=== PATIENT | female | born 1995 | race Caucasian/White ===

== ENCOUNTER 2016-12-28 10:33 | Inpatient (IN) | payer OTHER ==
--- NOTE | 2016-12-28 11:14 | ED ---
General Adult HPI - General Chief complaint: Psychiatric Symptoms Stated complaint: Overdose Time Seen by Provider: 12/28/16 10:54 Source: patient, RN notes reviewed Mode of arrival: EMS Limitations: no limitations - History of Present Illness Initial comments: Patient is a 21-year-old female who presents emergency room with chief complaint of suicidal intent. Patient does admit to taking tramadol and Valium or Xanax. She states tramadol was prescribed herself or kidney stone proximal ago. States the Valium or Xanax was her mother's. She states she took 8 pills and tramadol and 1 tab of either Valium or Xanax. She states she did have intentions of hurting herself. States she does not see a therapist or counselor. Patient does admit to feeling very sleepy at this time but denies any other complaints. Patient denies any recent fever, chills, shortness of breath, chest pain, back pain, abdominal pain, nausea or vomiting, numbness or tingling, dysuria or hematuria, constipation or diarrhea, headaches or visual changes, or any other complaints. - Related Data Home Medications Medication Instructions Recorded Confirmed Ibuprofen [Motrin] 400 mg PO Q6HR PRN 12/28/16 12/28/16 [place]-Linyah 1 tab PO DAILY 12/28/16 12/28/16 Allergies Allergy/AdvReac Type Severity Reaction Status Date / Time No Known Allergies Allergy Verified 12/28/16 11:45 Review of Systems ROS Statement: Those systems with pertinent positive or pertinent negative responses have been documented in the HPI. ROS Other: All systems not noted in ROS Statement are negative. Past Medical History Additional Past Medical History / Comment(s): kidney stones History of Any Multi-Drug Resistant Organisms: None Reported Additional Past Surgical History / Comment(s): lithotripsy Past Psychological History: Depression Smoking Status: Never smoker Past Alcohol Use History: None Reported Past Drug Use History: None Reported General Exam - General Exam Comments Initial Comments: General: The patient is awake and alert, in no distress, and does not appear acutely ill. Eye: Pupils are equal, round and reactive to light, extra-ocular movements are intact. No nystagmus. There is normal conjunctiva bilaterally. No signs of icterus. Ears, nose, mouth and throat: There are moist mucous membranes and no oral lesions. Neck: The neck is supple, there is no tenderness or JVD. Cardiovascular: There is a regular rate and rhythm. No murmur, rub or gallop is appreciated. Respiratory: Lungs are clear to auscultation, respirations are non-labored, breath sounds are equal. No wheezes, stridor, rales, or rhonchi. Gastrointestinal: Soft, non-distended, non-tender abdomen without masses or organomegaly noted. There is no rebound or guarding present. No CVA tenderness. Bowel sounds are unremarkable. Musculoskeletal: Normal ROM, no tenderness. Strength 5/5. Sensation intact. Pulses equal bilaterally 2+. Neurological: A&O x 3. CN II-XII intact, There are no obvious motor or sensory deficits. Coordination appears grossly intact. Speech is normal. Skin: Skin is warm and dry and no rashes or lesions are noted. Psychiatric: Cooperative. Limitations: no limitations Course Vital Signs 12/28/16 10:59 Temperature 97.1 F L Pulse Rate 126 H Respiratory 18 Rate Blood Pressure 164/90 O2 Sat by Pulse 100 Oximetry - Reevaluation(s) Reevaluation #1: 12/28/16 13:18 Patient reexamined at this time and showing no signs of distress resting comfortable. States she is feeling better after IV fluids. Heart rate currently 110 bpm. Patient's EKG shows sinus tachycardia 110 bpm. MT interval 146. QRS 88. QT/QTC 352/476. Case was discussed with poison control. Nursing staff did talk with them and they recommended basic lab work along with fluid bolus. They stated they were worried about bradycardia. Patient has been seen by [facility] here in the emergency room and they are recommending admission to the hospital. 12/28/16 13:49 Case discussed in detail with attending physician Dr. Li .Patient is seen here in the health recommendation. Patient continues give IV fluids. Patient urinalysis reveals possible urinary tract infection. She does admit to some symptoms of increased frequency and a smell. Patient given dose Rocephin here in the emergency room. Medical Decision Making - Lab Data Result diagrams: 12/28/16 10:49 12/28/16 10:49 Lab Results 12/28/16 12/28/16 12/28/16 Range/Units 10:49 10:49 10:49 WBC 10.1 (3.8-10.6) k/uL RBC 4.60 (3.80-5.40) m/uL Hgb 13.5 (11.4-16.0) gm/dL Hct 39.5 (34.0-46.0) % MCV 85.9 (80.0-100.0) fL MCH 29.3 (25.0-35.0) pg MCHC 34.0 (31.0-37.0) g/dL RDW 12.3 (11.5-15.5) % Plt Count 299 (150-450) k/uL Neutrophils % 72 % Lymphocytes % 23 % Monocytes % 3 % Eosinophils % 1 % Basophils % 0 % Neutrophils # 7.2 (1.3-7.7) k/uL Lymphocytes # 2.3 (1.0-4.8) k/uL Monocytes # 0.3 (0-1.0) k/uL Eosinophils # 0.1 (0-0.7) k/uL Basophils # 0.0 (0-0.2) k/uL Sodium 138 (137-145) mmol/L Potassium 3.6 (3.5-5.1) mmol/L Chloride 102 (98-107) mmol/L Carbon Dioxide 19 L (22-30) mmol/L Anion Gap 17 mmol/L BUN 11 (7-17) mg/dL Creatinine 0.50 L (0.52-1.04) mg/dL Est GFR (MDRD) Af Amer >60 (>60 ml/min/1.73 sqM) Est GFR (MDRD) Non-Af >60 (>60 ml/min/1.73 sqM) Glucose 119 H (74-99) mg/dL Calcium 9.4 (8.4-10.2) mg/dL Total Bilirubin 0.3 (0.2-1.3) mg/dL AST 28 (14-36) U/L ALT 53 H (9-52) U/L Alkaline Phosphatase 75 (38-126) U/L Total Protein 7.9 (6.3-8.2) g/dL Albumin 4.6 (3.5-5.0) g/dL Urine Color Urine Appearance (Clear) Urine pH (5.0-8.0) Ur Specific [place] (1.001-1.035) Urine Protein (Negative) Urine Glucose (UA) (Negative) Urine Ketones (Negative) Urine Blood (Negative) Urine Nitrite (Negative) Urine Bilirubin (Negative) Urine Urobilinogen (<2.0) mg/dL Ur Leukocyte Esterase (Negative) Urine RBC (0-5) /hpf Urine WBC (0-5) /hpf Ur Squamous Epith Cells (0-4) /hpf Urine Bacteria (None) /hpf Urine Mucus (None) /hpf Urine HCG, Qual (Not Detectd) Salicylates <1.0 mg/dL Urine Opiates Screen (NotDetected) Ur Oxycodone Screen (NotDetected) Urine Methadone Screen (NotDetected) Ur Propoxyphene Screen (NotDetected) Acetaminophen <10.0 ug/mL Ur Barbiturates Screen (NotDetected) U Tricyclic Antidepress (NotDetected) Ur Phencyclidine Scrn (NotDetected) Ur Amphetamines Screen (NotDetected) U Methamphetamines Scrn (NotDetected) U Benzodiazepines Scrn (NotDetected) Urine Cocaine Screen (NotDetected) U Marijuana (THC) Screen (NotDetected) 12/28/16 12/28/16 Range/Units 11:30 11:30 WBC (3.8-10.6) k/uL RBC (3.80-5.40) m/uL Hgb (11.4-16.0) gm/dL Hct (34.0-46.0) % MCV (80.0-100.0) fL MCH (25.0-35.0) pg MCHC (31.0-37.0) g/dL RDW (11.5-15.5) % Plt Count (150-450) k/uL Neutrophils % % Lymphocytes % % Monocytes % % Eosinophils % % Basophils % % Neutrophils # (1.3-7.7) k/uL Lymphocytes # (1.0-4.8) k/uL Monocytes # (0-1.0) k/uL Eosinophils # (0-0.7) k/uL Basophils # (0-0.2) k/uL Sodium (137-145) mmol/L Potassium (3.5-5.1) mmol/L Chloride (98-107) mmol/L Carbon Dioxide (22-30) mmol/L Anion Gap mmol/L BUN (7-17) mg/dL Creatinine (0.52-1.04) mg/dL Est GFR (MDRD) Af Amer (>60 ml/min/1.73 sqM) Est GFR (MDRD) Non-Af (>60 ml/min/1.73 sqM) Glucose (74-99) mg/dL Calcium (8.4-10.2) mg/dL Total Bilirubin (0.2-1.3) mg/dL AST (14-36) U/L ALT (9-52) U/L Alkaline Phosphatase (38-126) U/L Total Protein (6.3-8.2) g/dL Albumin (3.5-5.0) g/dL Urine Color Yellow Urine Appearance Turbid H (Clear) Urine pH 6.0 (5.0-8.0) Ur Specific [place] 1.021 (1.001-1.035) Urine Protein 1+ H (Negative) Urine Glucose (UA) Negative (Negative) Urine Ketones 1+ H (Negative) Urine Blood Small H (Negative) Urine Nitrite Negative (Negative) Urine Bilirubin Negative (Negative) Urine Urobilinogen <2.0 (<2.0) mg/dL Ur Leukocyte Esterase Large H (Negative) Urine RBC 10 H (0-5) /hpf Urine WBC 25 H (0-5) /hpf Ur Squamous Epith Cells 21 H (0-4) /hpf Urine Bacteria Moderate H (None) /hpf Urine Mucus Occasional H (None) /hpf Urine HCG, Qual Not Detected (Not Detectd) Salicylates mg/dL Urine Opiates Screen Not Detected (NotDetected) Ur Oxycodone Screen Not Detected (NotDetected) Urine Methadone Screen Not Detected (NotDetected) Ur Propoxyphene Screen Not Detected (NotDetected) Acetaminophen ug/mL Ur Barbiturates Screen Not Detected (NotDetected) U Tricyclic Antidepress Not Detected (NotDetected) Ur Phencyclidine Scrn Not Detected (NotDetected) Ur Amphetamines Screen Not Detected (NotDetected) U Methamphetamines Scrn Not Detected (NotDetected) U Benzodiazepines Scrn Not Detected (NotDetected) Urine Cocaine Screen Not Detected (NotDetected) U Marijuana (THC) Screen Not Detected (NotDetected) Disposition Clinical Impression: Attempted suicide Disposition: TRANSFER TO PSYCH HOSP/UNIT Condition: Stable Referrals: Melchor Diaz MD [Primary Care Provider] - 1-2 days
[2016-12-28 11:20] LABS: Basophils % (A) 0 %; CH 29.2; CHCM 34.1; Eosinophils # (A) 0.1 k/uL (0-0.7); Eosinophils % (A) 1 %; HCT 39.5 % (34.0-46.0); HDW 2.41; HGB 13.5 gm/dL (11.4-16.0); Luc # (Auto) 0.21; Luc % (Auto) 2; Lymphocytes # (A) 2.3 k/uL (1.0-4.8); Lymphocytes % (A) 23 %; MCH 29.3 pg (25.0-35.0); MCV 85.9 fL (80.0-100.0); Mean Platelet Volume 6.7; Monocytes # (A) 0.3 k/uL (0-1.0); Monocytes % (A) 3 %; Neutrophils # (A) 7.2 k/uL (1.3-7.7); Neutrophils % (A) 72 %; RDW 12.3 % (11.5-15.5); WBC 10.1 k/uL (3.8-10.6); WBC (Perox) 9.88
[2016-12-28 11:32] LABS: Acetaminophen <10.0 ug/mL; Salicylate <1.0 mg/dL
[2016-12-28 11:33] LABS: ALT 53 U/L (9-52); AST 28 U/L (14-36); Alkaline Phosphatase 75 U/L (38-126); Anion Gap 17 mmol/L; Blood Urea Nitrogen 11 mg/dL (7-17); Calcium 9.4 mg/dL (8.4-10.2); Carbon Dioxide 19 mmol/L (22-30); Chloride 102 mmol/L (98-107); Glucose 119 mg/dL (74-99); Non-African American GFR(MDRD) >60 (>60 ml/min/1.73 sqM); Potassium 3.6 mmol/L (3.5-5.1); Sodium 138 mmol/L (137-145); Total Bilirubin 0.3 mg/dL (0.2-1.3); Total Protein 7.9 g/dL (6.3-8.2)
[2016-12-28] MEDS ORDERED: SODIUM CHLORIDE 0.9% 1,000 ML IV STA ×3 (12:08→12:28)
[2016-12-28 12:40] LABS: Appearance,Urine Turbid (Clear); Bacteria,Urine Moderate /hpf; Bilirubin,Urine Negative (Negative); Glucose,Urine (UA) Negative (Negative); Ketones,Urine 1+ (Negative); Leukocyte Esterase,Urine Large (Negative); Mucus,Urine Occasional /hpf; Nitrite,Urine Negative (Negative); Particle Count 47387; Protein,Urine 1+ (Negative); RBC,Urine 10 /hpf (0-5); Specific Gravity,Urine 1.021 (1.001-1.035); Squamous Epithelial Cell,Urine 21 /hpf (0-4); UA Billing (MACRO vs. MICRO) MICRO; Urobilinogen,Urine <2.0 mg/dL (<2.0); WBC,Urine 25 /hpf (0-5)
[2016-12-28] MEDS ORDERED: ACETAMINOPHEN TAB 325 MG TAB PO PRN (15:46)
[2016-12-28] MEDS ORDERED: LORazepam 0.5 MG TAB PO PRN (15:46)
[2016-12-28] MEDS ORDERED: MAGNESIUM HYDROXIDE 2,400 MG/10 ML CUP PO PRN (15:46)
[2016-12-28] MEDS ORDERED: MAG HYDROX/AL HYDROX/SIMETH 30 ML CUP PO PRN (15:46)
[2016-12-28] MEDS ORDERED: IBUPROFEN 400 MG TAB PO PRN (15:54)
[2016-12-29 07:27] VITALS: RESP 16
[2016-12-29] MEDS ORDERED: MONO LINYAH PO SCH (09:00)
[2016-12-29 10:04] LABS: Basophils % (A) 0 %; CH 29.3; Eosinophils # (A) 0.1 k/uL (0-0.7); Eosinophils % (A) 1 %; HCT 40.3 % (34.0-46.0); HDW 2.39; HGB 13.3 gm/dL (11.4-16.0); Luc # (Auto) 0.17; Luc % (Auto) 2; Lymphocytes # (A) 2.6 k/uL (1.0-4.8); Lymphocytes % (A) 32 %; MCH 28.5 pg (25.0-35.0); MCHC 33.1 g/dL (31.0-37.0); MCV 86.4 fL (80.0-100.0); Mean Platelet Volume 6.5; Monocytes # (A) 0.3 k/uL (0-1.0); Monocytes % (A) 4 %; Neutrophils # (A) 4.9 k/uL (1.3-7.7); Neutrophils % (A) 61 %; RBC 4.67 m/uL (3.80-5.40); RDW 12.3 % (11.5-15.5); WBC (Perox) 8.14
[2016-12-29 10:38] LABS: ALT 48 U/L (9-52); AST 35 U/L (14-36); Alkaline Phosphatase 73 U/L (38-126); Anion Gap 15 mmol/L; Blood Urea Nitrogen 9 mg/dL (7-17); Calcium 9.5 mg/dL (8.4-10.2); Carbon Dioxide 23 mmol/L (22-30); Chloride 99 mmol/L (98-107); Glucose 111 mg/dL (74-99); Non-African American GFR(MDRD) >60 (>60 ml/min/1.73 sqM); Potassium 3.9 mmol/L (3.5-5.1); Sodium 137 mmol/L (137-145); Total Bilirubin 0.5 mg/dL (0.2-1.3); Total Protein 7.8 g/dL (6.3-8.2)
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
[2016-12-29] MEDS: buPROPion SR 100 MG TABLET.ER PO SCH (12:11)
[2016-12-29] MEDS: LEVOFLOXACIN 500 MG TAB PO SCH (16:30)
[2016-12-29] MEDS: MONO-LINYAH 28 TABLET PO SCH (22:33)
[2016-12-30] MEDS: buPROPion SR 100 MG TABLET.ER PO SCH (11:22)
[2016-12-30] MEDS: MONO-LINYAH 28 TABLET PO SCH ×2 (11:23→16:36)
--- NOTE | 2016-12-30 11:55 | P.PN ---
Progress Note - Text INTERVERAL HISTORY: 21-year-old female, single , made suicide attempt with overdose on tramadol 2 days ago. Several years of depression without treatment. Drinking more since breakup in August. Reports she is thankful she was not successful, and that she has a second chance. Reports her mood is improved today, feels that she has a better outlook. States that being on the unit has helped to keep her busy and knows that she is going to have to force herself when she is discharged. Spoke about her mother and father, and that they I have told her that they are there to help her, she feels positive about that and that she did note that before. However she says her mom thinks that she is not can be leaving the hospital until the depression is completely gone. Fior says she knows that it takes time for the medicine to work, and that she needs to do counseling. She feels her mood has improved, still depressed, still has to force herself out of bed, but feels that she would like to be able to leave tomorrow. Denies suicidal ideation. MENTAL STATUS EXAM:Patient alert and oriented 3, good eye contact, fair groomed in street clothing. Speech normal volume, rate and production. Coherent, logical and goal directed thought process. No RONALDO, no FOI. [No TB/TW/ TI] Denied auditory and visual hallucinations. Denied paranoid ideation, delusions or IOR. Memory intact, Cognition average Mood dysphoric, affect full range decreased intensity, congruent with mood. Denies suicidal ideation, denies homicidal ideation. Insight partial; Judgment grossly intact for treatment purposes PLAN: Continue inpatient admission for safety and medication management. Will increase welbutrin XL 150mg. Patient would benefit with CBT for depression, in outpatient setting along with continued medication adjustment Family meeting to be scheduled, education for parents about depression. Consider discharge tomorrow
[2016-12-30] MEDS: LEVOFLOXACIN 500 MG TAB PO SCH (16:37)
[2016-12-30] MEDS ORDERED: buPROPion XL 150 MG TAB.ER.24H PO SCH (17:30)
[2016-12-30] MEDS ORDERED: MONO LINYAH PO SCH (17:30)
[2016-12-31 03:53] VITALS: BP 126/88; PULSE 114; TEMP 97.9
--- NOTE | 2016-12-31 09:45 | P.DS ---
Providers Date of admission: 12/28/16 15:35 Expected date of discharge: 12/31/16 Attending physician: Rebekah Moreau MD Consults: 12/28/16 15:46 Consult Physician Routine Consulting Provider: Melchor Diaz Consult Reason/Comments: history and physical Do you want consulting provider notified?: Yes Primary care physician: Melchor Diaz - Discharge Diagnosis(es) (1) Suicidal behavior with attempted self-injury Current Visit: Yes Status: Resolved (2) Attempted suicide Current Visit: Yes Status: Acute Hospital Course: Patient was admitted to the hospital through the emergency room after making a suicide attempt of taking 8 tramadol and 1 valium. Admitted to the mental health unit had symptoms of major depressive disorder recurrent. Patient had depressed mood, anhedonia, fatigue, poor concentration and memory, poor self-esteem, and suicidal ideation. She gives history of this ongoing since the age of 15. Had thoughts of suicide in the past but never acted on them. At one point she reported to her mother she felt depressed, but felt that her mother said she was being dramatic. Patient thought because she does not take medication that 8 tramadol and 1 Valium would have killed her. She reported just wanting to not feel the pain anymore. When first seen on the unit she reported that she was thankful that she had not been successful in her suicide attempt. Thankful she had a second chance. Patient has a past history of prediabetes and polycystic ovary disease, she is overweight. Wellbutrin was started as a first choice due to its weight neutral profile. She tolerated the medication without side effects. She participated in all of the milieu therapy. She reports she is feeling much better, no suicidal ideation. Still with negative thoughts/poor self-esteem. Patient alert and oriented 3, good eye contact, fair groomed in street clothing. Speech normal volume, rate and production. Coherent, logical and goal directed thought process. No RONALDO, no FOI. [No TB/TW/ TI] Denied auditory and visual hallucinations. Denied paranoid ideation, delusions or IOR. Memory intact Cognition average Mood [dysphoric], affect full range, decreased intensity, congruent with mood. Denies suicidal ideation, denies homicidal ideation. Insight full; Judgment grossly intact for treatment purposes DSM V Major Depressive Disorder, recurrent, moderate PLAN: Patient to be discharged today after family meeting. We will set her up with counseling to include CBT for depression. Continue Wellbutrin XL 150 mg daily Pertinent Studies: none Procedures: none Plan - Discharge Summary New Discharge Prescriptions: buPROPion XL [Wellbutrin XL] 150 mg PO DAILY@1730 #30 tab Levofloxacin [Levaquin] 500 mg PO Q24H #5 tab Discharge Medication List Ibuprofen [Motrin] 400 mg PO Q6HR PRN 12/28/16 [History] [place]-Linyah 1 tab PO DAILY 12/28/16 [History] Levofloxacin [Levaquin] 500 mg PO Q24H #5 tab 12/31/16 [Rx] buPROPion XL [Wellbutrin XL] 150 mg PO DAILY@1730 #30 tab 12/31/16 [Rx] Follow up Appointment(s)/Referral(s): Melchor Diaz MD [Primary Care Provider] - 1-2 days
== END 2016-12-31 15:08 | disposition home or self-care (01) | DRG 885 ==
LOC: EC 10:33 → 3MHU 15:35
PROVIDERS: ADMIT Psychiatry & Neurology Addiction Medicine; ATTEND Psychiatry & Neurology Addiction Medicine
DX: F33.2 Major depressive disorder, recurrent severe without psychotic features (principal); E28.2 Polycystic ovarian syndrome; T40.4X2A Poisoning by other synthetic narcotics, intentional self-harm, initial encounter; T42.4X2A Poisoning by benzodiazepines, intentional self-harm, initial encounter; Z91.5 Personal history of self-harm; R73.03 Prediabetes; E66.3 Overweight; Z68.38 Body mass index [BMI] 38.0-38.9, adult; Z81.8 Family history of other mental and behavioral disorders; Z87.442 Personal history of urinary calculi; Z79.899 Other long term (current) drug therapy
CPT/HCPCS: 36415; 80053; 80306; 81001; 81025; 82075; 83520; 84443; 85025; 87086; 93005; 96361; 96365; 96366; 99285

== ENCOUNTER 2020-04-16 11:58 | Outpatient (CLI) | payer BC ==
[2020-04-16 13:09] VITALS: BP 130/79; PULSE 117; RESP 17; TEMP 96.9
--- NOTE | 2020-04-16 13:28 | P.MSEPDOC ---
Presenting Problems - Arrival Data Date of Arrival on Unit: 04/16/20 Time of Arrival on Unit: 11:58 Mode of Transport: Ambulatory - Complaint OB-Reason for Admission/Chief Complaint: Decreased Movement Comment: pt came into triage for decreased movement after dog jumped on her stomach Medical History - Information : 1 Para: 0 Term: 0 : 0 Abortions: Spontaneous or Elective: 0 Number of Living Children: 0 - Gestational Age Gestational Age by TAMERA (wks/days): 30 Weeks and 1 Days Review of Systems - Review of Systems Constitutional: No problems Breast: No problems ENT: No problems Cardiovascular: No problems Respiratory: No problems Gastrointestinal: No problems Genitourinary: No problems Musculoskeletal: No problems Neurological: No problems Skin: No problems Vital Signs - Temperature Temperature: 96.9 F Temperature Source: Temporal Artery Scan - Pulse Right Brachial Pulse Rate: 117 Pulse Assessment Method: Pulse Oximetry - Respirations Respiratory Rate: 17 Oxygen Delivery Method: Room Air O2 Sat by Pulse Oximetry: 97 - Blood Pressure Right Arm Blood Pressure: 130/79 Blood Pressure Mean: 96 Blood Pressure Source: Automatic Cuff Medical Screen Scoring (Pre) - Cervical Exam Dilation: Exam Deferred Effacement: Exam Deferred Membranes: Intact - Uterine Contractions Frequency: N/A Duration: N/A Intensity: N/A - Maternal Vital Signs Signs of Preeclampsia: N/A Maternal Respirations: N/A - Maternal Trauma Maternal Trauma: N/A - Assessment - Baby A Baseline FHR: 150 Heart Rate - NICHD Category: Category I (Normal) = 0 NST: Reactive Position: N/A Station: N/A - Total Score - Baby A Total Score - Baby A: 0 - Total Score - Baby B Total Score - Baby B: 0 - Total Score - Baby C Total Score - Baby C: 0 - Level of Risk - Baby A Level of Risk - Baby A: Low (0-5) - Level of Risk - Baby B Level of Risk - Baby B: Low (0-5) - Level of Risk - Baby C Level of Risk - Baby C: Low (0-5) Physician Notification (Pre) - Physician Notified Physician Notified Date: 04/16/20 Physician Notified Time: 12:00 New Order Received: Yes Disposition - Disposition OB Disposition: Triage, Discharge to home, Written follow up instructions reviewed Discharge Date: 04/16/20 Discharge Time: 12:50 I agree with the RN Medical Screening Exam: Yes Risk & Benefit of care provided described in d/c instruction: Yes Diagnosis: DECREASED MOVEMENTS, THIRD TRIMESTER, FETUS 1
== END 2020-04-16 12:50 | disposition home or self-care (01) ==
LOC: FBPOP 11:58
PROVIDERS: ATTEND Obstetrics & Gynecology
DX: O36.8131 Decreased fetal movements, third trimester, fetus 1 (principal); Z3A.30 30 weeks gestation of pregnancy
CPT/HCPCS: 59025; 99213

== ENCOUNTER 2020-04-23 16:47 | Outpatient (CLI) | payer BC ==
[2020-04-23 18:10] VITALS: BP 119/71; PULSE 113; RESP 16; TEMP 97.9
--- NOTE | 2020-06-13 07:54 | P.MSEPDOC ---
Presenting Problems - Arrival Data Date of Arrival on Unit: 04/23/20 Time of Arrival on Unit: 17:00 Mode of Transport: Ambulatory Vital Signs - Temperature Temperature: 97.9 F Temperature Source: Temporal Artery Scan - Pulse Pulse Oximetery Pulse Rate: 113 Pulse Assessment Method: Pulse Oximetry - Respirations Respiratory Rate: 16 O2 Sat by Pulse Oximetry: 97 - Blood Pressure Right Arm Sitting Blood Pressure: 119/71 Blood Pressure Mean: 87 Blood Pressure Source: Automatic Cuff Medical Screen Scoring (Post) - Cervical Exam Dilation: Exam Deferred Effacement: Exam Deferred Membranes: Intact - Uterine Contractions Frequency: N/A Duration: N/A Intensity: N/A - Maternal Vital Signs Maternal Temperature: N/A Maternal Blood Pressure: N/A Signs of Preeclampsia: N/A Maternal Respirations: N/A - Pain Assessment Pain Scale Used: Numeric (1 - 10) Pain Intensity: 0 - Maternal Trauma Maternal Trauma: N/A - Assessment - Baby A Heart Rate: 140 Heart Rate - NICHD Category: Category I (Normal) = 0 NST: Reactive Position: N/A Station: N/A - Total Score Total Score - Baby A: 0 Total Score - Baby B: 0 Total Score - Baby C: 0 - Post Treatment Level of Risk Post Treatment Level of Risk - Baby A: Low (0-5) Post Treatment Level of Risk - Baby B: Low (0-5) Post Treatment Level of Risk - Baby C: Low (0-5) Physician Notification (Post) - Physician Notified Physician Notified Date: 04/23/20 Physician Notified Time: 17:40 Physician/Practitioner Notified:: Dr Mccarthy New Order Received: Yes Disposition - Disposition OB Disposition: Discharge to home, Written follow up instructions reviewed Discharge Date: 04/23/20 Discharge Time: 17:55 I agree with the RN Medical Screening Exam: Yes Risk & Benefit of care provided described in d/c instruction: Yes Diagnosis: DIZZINESS AND GIDDINESS
== END 2020-04-23 17:55 | disposition home or self-care (01) ==
LOC: FBPOP 16:47
PROVIDERS: ATTEND Obstetrics & Gynecology
DX: O99.89 Other specified diseases and conditions complicating pregnancy, childbirth and the puerperium (principal); R42 Dizziness and giddiness; Z3A.00 Weeks of gestation of pregnancy not specified
CPT/HCPCS: 59025; 99213

== ENCOUNTER 2020-06-06 16:46 | Observation (INO) | payer BC ==
[2020-06-06 17:23] LABS: Appearance,Urine Cloudy (Clear); Bacteria,Urine Occasional /hpf; Bilirubin,Urine Negative (Negative); Blood,Urine Large (Negative); Color,Urine Yellow; Glucose,Urine (UA) Negative (Negative); Ketones,Urine Trace (Negative); Leukocyte Esterase,Urine Small (Negative); Mucus,Urine Moderate /hpf; Nitrite,Urine Negative (Negative); Protein,Urine 1+ (Negative); RBC,Urine >182 /hpf (0-5); Specific Gravity,Urine 1.027 (1.001-1.035); Squamous Epithelial Cell,Urine 11 /hpf (0-4); Urobilinogen,Urine <2.0 mg/dL (<2.0); WBC,Urine 7 /hpf (0-5)
[2020-06-06] MEDS ORDERED: ONDANSETRON 4 MG/2 ML VIAL IM STA (17:45)
[2020-06-06] MEDS ORDERED: LACTATED RINGERS 1,000 ML IV ONE (17:45)
[2020-06-06] MEDS ORDERED: BUTORPHANOL 1 MG/ML 1 ML VIAL IV PRN ×2 (17:46→19:02)
[2020-06-06] MEDS ORDERED: ONDANSETRON 4 MG/2 ML VIAL IVP STA (17:47)
[2020-06-06 18:19] LABS: Basophils % (A) 0 %; Eosinophils # (A) 0.1 k/uL (0-0.7); Eosinophils % (A) 1 %; HCT 33.4 % (34.0-46.0); HGB 11.5 gm/dL (11.4-16.0); Lymphocytes # (A) 1.7 k/uL (1.0-4.8); Lymphocytes % (A) 18 %; MCH 29.2 pg (25.0-35.0); MCHC 34.3 g/dL (31.0-37.0); MCV 85.1 fL (80.0-100.0); Mean Platelet Volume 6.8; Monocytes # (A) 0.5 k/uL (0-1.0); Monocytes % (A) 5 %; Neutrophils # (A) 6.9 k/uL (1.3-7.7); Neutrophils % (A) 75 %; Platelet Count 321 k/uL (150-450); RBC 3.93 m/uL (3.80-5.40); RDW 14.2 % (11.5-15.5); WBC 9.2 k/uL (3.8-10.6)
[2020-06-06 18:24] LABS: ALT 22 U/L (4-34); AST 35 U/L (14-36); African American GFR (CKD) >90 (>60 ml/min/1.73 sqM); Albumin 3.7 g/dL (3.5-5.0); Alkaline Phosphatase 140 U/L (38-126); Anion Gap 8 mmol/L; Blood Urea Nitrogen 10 mg/dL (7-17); Calcium 9.4 mg/dL (8.4-10.2); Carbon Dioxide 20 mmol/L (22-30); Chloride 106 mmol/L (98-107); Glucose 99 mg/dL (74-99); Non-African American GFR(CKD) >90 (>60 ml/min/1.73 sqM); Potassium 4.4 mmol/L (3.5-5.1); Sodium 134 mmol/L (137-145); Total Bilirubin 0.4 mg/dL (0.2-1.3); Total Protein 6.8 g/dL (6.3-8.2)
[2020-06-06 18:26] VITALS: RESP 16
[2020-06-06] MEDS ORDERED: ONDANSETRON 4 MG/2 ML VIAL IVP PRN (19:01)
[2020-06-06] MEDS ORDERED: LACTATED RINGERS 1,000 ML IV SCH (19:15)
--- NOTE | 2020-06-07 07:24 | P.HPOB ---
History of Present Illness H&P Date: 06/07/20 Chief Complaint: Left flank pain, history of kidney stones This patient is a pleasant 24-year-old 1 para 0 female 37-3/7 weeks gestation admitted last evening with complaints of significant left-sided flank pain. Patient is urinalysis showed hematuria and she has a history of kidney stones 3 years ago that required stent placement and lithotripsy. Patient's has otherwise been uncomplicated. This is her first significant episode of kidney stone pain. Review of Systems Constitutional: Reports as per HPI Past Medical History Additional Past Medical History / Comment(s): kidney stones History of Any Multi-Drug Resistant Organisms: None Reported Past Surgical History: No Surgical Hx Reported Additional Past Surgical History / Comment(s): lithotripsy Past Anesthesia/Blood Transfusion Reactions: No Reported Reaction Past Psychological History: Depression Smoking Status: Never smoker Past Alcohol Use History: None Reported Past Drug Use History: None Reported - Past Family History Mother Family Medical History: No Reported History Medications and Allergies Home Medications Medication Instructions Recorded Confirmed Type Levothyroxine Sodium [Levoxyl] 50 mcg PO DAILY 04/16/20 04/23/20 History Pnv No.95/Ferrous Fum/Folic AC 1 tab PO DAILY 04/16/20 04/23/20 History [ Multivitamin Tablet] Allergies Allergy/AdvReac Type Severity Reaction Status Date / Time hydromorphone AdvReac Nausea Verified 06/06/20 16:53 Exam Vital Signs Temp Pulse Resp BP Pulse Ox 06/07/20 00:00 96.4 F L 108 H 16 105/60 06/06/20 18:21 96.3 F L 129 H 16 134/81 99 Intake and Output 06/06/20 06/07/20 06/07/20 22:59 06:59 14:59 Output Total 100 Balance -100 Output: Urine 100 Other: Weight 93.894 kg - OBG Physical Exam Abdomen: bowel sounds normal, no diffuse tenderness, no bruit present, no guarding noted, no hepatomegaly, no splenomegaly, no mass Uterus: enlarged Results Result Diagrams: 06/06/20 18:00 06/06/20 18:00 Abnormal Lab Results - Last 24 Hours (Table) 06/06/20 06/06/20 06/06/20 Range/Units 16:55 18:00 18:00 Hct 33.4 L (34.0-46.0) % Sodium 134 L (137-145) mmol/L Carbon Dioxide 20 L (22-30) mmol/L Creatinine 0.48 L (0.52-1.04) mg/dL Alkaline Phosphatase 140 H (38-126) U/L Urine Appearance Cloudy H (Clear) Urine Protein 1+ H (Negative) Urine Ketones Trace H (Negative) Urine Blood Large H (Negative) Ur Leukocyte Esterase Small H (Negative) Urine RBC >182 H (0-5) /hpf Urine WBC 7 H (0-5) /hpf Ur Squamous Epith Cells 11 H (0-4) /hpf Urine Bacteria Occasional H (None) /hpf Urine Mucus Moderate H (None) /hpf Microbiology - Last 24 Hours (Table) 06/06/20 16:55 Urine Culture - Preliminary Urine,Clean Catch Assessment and Plan Assessment: This is a pleasant 24-year-old 1 para 0 female 37-1/2 weeks gestation with significant left-sided flank pain and urinalysis consistent with kidney stone. Patient does have a history of such. Plan is admission for IV hydration, pain control, strain her urine, and every shift nonstress test. (1) 37 weeks gestation of Current Visit: Yes Status: Acute Code(s): Z3A.37 - 37 WEEKS GESTATION OF SNOMED Code(s): 76080950 (2) Renal calculus or stone Current Visit: Yes Status: Acute Code(s): N20.0 - CALCULUS OF KIDNEY SNOMED Code(s): 67973570
--- NOTE | 2020-06-07 07:25 | P.PN ---
Progress Note - Text Progress Note Date: 06/07/20 Patient did pass a small piece of sediment during the night and feels much better this morning. This morning she is without significant pain and feels that the IV hydration helped quite a bit. She is not taking any pain medications at this time. Plan today is to continue IV fluids and discharge home after breakfast if she continues to feel well.
--- NOTE | 2020-06-07 07:29 | P.DS ---
Providers Date of admission: 06/06/20 19:03 Expected date of discharge: 06/07/20 Attending physician: Daniele Mccarthy Primary care physician: Stated None - Discharge Diagnosis(es) (1) 37 weeks gestation of Current Visit: Yes Status: Acute (2) Renal calculus or stone Current Visit: Yes Status: Acute Hospital Course: Please see dictated H&P for intimate details of this patient's admission. Brief summary this is a pleasant 24-year-old 1 para 0 female 37-1/2 weeks gestation admitted to labor and delivery with significant left-sided pain and evaluation consistent with kidney stone. Patient is given IV hydration and IV pain medications. She does pass some sediment feels much better after this. She was felt be stable for discharge home follow up with me next week as scheduled. Patient Condition at Discharge: Good Plan - Discharge Summary New Discharge Prescriptions: No Action Levothyroxine Sodium [Levoxyl] 50 mcg PO DAILY Pnv No.95/Ferrous Fum/Folic AC [ Multivitamin Tablet] 1 tab PO DAILY Discharge Medication List Levothyroxine Sodium [Levoxyl] 50 mcg PO DAILY 04/16/20 [History] Pnv No.95/Ferrous Fum/Folic AC [ Multivitamin Tablet] 1 tab PO DAILY 04/16/20 [History] Follow up Appointment(s)/Referral(s): Daniele Mccarthy MD [STAFF PHYSICIAN] - 1 Week Patient Instructions/Handouts: Kidney Stones (DC) Activity/Diet/Wound Care/Special Instructions: Continue oral hydration as instructed. Please see me next week as scheduled. Please call or return to labor and delivery of any concerns. Discharge Disposition: HOME SELF-CARE
--- NOTE | 2020-06-07 07:36 | P.MSEPDOC ---
Presenting Problems - Arrival Data Date of Arrival on Unit: 06/06/20 Time of Arrival on Unit: 16:46 Mode of Transport: Wheelchair - Complaint OB-Reason for Admission/Chief Complaint: Pain Comment: Sharp L flank pain Medical History - Information : 1 Para: 0 Term: 0 : 0 Abortions: Spontaneous or Elective: 0 Number of Living Children: 0 - Gestational Age Gestational Age by TAMERA (wks/days): 37 Weeks and 3 Days Review of Systems - Review of Systems Constitutional: No problems Breast: No problems ENT: No problems Cardiovascular: No problems Respiratory: No problems Gastrointestinal: No problems Genitourinary: Dysuria Musculoskeletal: No problems Neurological: No problems Skin: No problems Vital Signs - Temperature Temperature: 96.4 F Temperature Source: Temporal Artery Scan - Pulse Right Sitting Brachial Pulse Rate: 108 Pulse Assessment Method: Automatic Cuff - Respirations Respiratory Rate: 16 Oxygen Delivery Method: Room Air - Blood Pressure Right Arm Sitting Blood Pressure: 105/60 Blood Pressure Mean: 75 Blood Pressure Source: Automatic Cuff Medical Screen Scoring (Pre) - Cervical Exam Dilation: 0 cm = 0 Membranes: Intact - Uterine Contractions Frequency: N/A Duration: N/A Intensity: N/A - Maternal Vital Signs Maternal Temperature: N/A Maternal Blood Pressure: N/A Signs of Preeclampsia: N/A Maternal Respirations: N/A - Maternal Trauma Maternal Trauma: N/A - Assessment - Baby A Baseline FHR: 140 Heart Rate - NICHD Category: Category I (Normal) = 0 NST: Reactive Position: N/A Station: N/A - Total Score - Baby A Total Score - Baby A: 0 - Total Score - Baby B Total Score - Baby B: 0 - Total Score - Baby C Total Score - Baby C: 0 - Level of Risk - Baby A Level of Risk - Baby A: Low (0-5) - Level of Risk - Baby B Level of Risk - Baby B: Low (0-5) - Level of Risk - Baby C Level of Risk - Baby C: Low (0-5) Physician Notification (Pre) - Physician Notified Physician Notified Date: 06/06/20 Physician Notified Time: 17:42 - Notification Comment Comment: Spk c\Dr. Mccarthy, advsd of pts complaints, UA results, reactive NST. States to. send urine for C&S, IV LR 500ml bolus, CBC, CMP, Stadol 1mg and Zofran 4mg if needed. Medical Screen Scoring (Post) - Uterine Contractions Frequency: N/A Duration: N/A Intensity: N/A - Maternal Vital Signs Maternal Temperature: N/A Maternal Blood Pressure: N/A Signs of Preeclampsia: N/A Maternal Respirations: N/A - Maternal Trauma Maternal Trauma: N/A - Assessment - Baby A Heart Rate: 140 Heart Rate - NICHD Category: Category I (Normal) = 0 NST: Reactive Position: N/A Station: N/A - Total Score Total Score - Baby A: 0 Total Score - Baby B: 0 Total Score - Baby C: 0 - Post Treatment Level of Risk Post Treatment Level of Risk - Baby A: Low (0-5) Post Treatment Level of Risk - Baby B: Low (0-5) Post Treatment Level of Risk - Baby C: Low (0-5) Physician Notification (Post) - Physician Notified Physician Notified Date: 06/06/20 Physician Notified Time: 18:55 Physician/Practitioner Notified:: Shari Spoke With: Shari New Order Received: Yes - Notification Comment Comment: Spk c\Dr. Mccarthy, reviewed CBC and CMP as well as pts comfort level. States to. admit pt as an OBV, Regular Diet, NST qshift and prn, IV LR 150ml/hr, Stadol 1mg q2hrs. prn, Zofran 4mg IV q4h prn. Disposition - Disposition OB Disposition: Admit, LDRP Suite I agree with the RN Medical Screening Exam: Yes Risk & Benefit of care provided described in d/c instruction: Yes Diagnosis: CALCULUS OF KIDNEY
[2020-06-07 09:23] VITALS: BP 115/74; PULSE 96; TEMP 96.8
== END 2020-06-07 08:45 | disposition home or self-care (01) ==
LOC: FBPOP 16:46 → 4FBP 19:03
PROVIDERS: ADMIT Obstetrics & Gynecology; ATTEND Obstetrics & Gynecology
DX: O26.833 Pregnancy related renal disease, third trimester (principal); N20.0 Calculus of kidney; Z3A.37 37 weeks gestation of pregnancy; Z87.442 Personal history of urinary calculi; O99.344 Other mental disorders complicating childbirth; F32.9 Major depressive disorder, single episode, unspecified; Z79.890 Hormone replacement therapy; Z88.5 Allergy status to narcotic agent
CPT/HCPCS: 59025; 96376; 99213; 96361; 96374; 96375; 80053; 85025; 81001; 87086; G0378 ×2; J0595; J2405

== ENCOUNTER 2020-06-09 16:00 | Emergency (ER) | payer BC ==
[2020-06-09 16:15] VITALS: RESP 18; TEMP 98.1
[2020-06-09] MEDS ORDERED: SODIUM CHLORIDE 0.9% 500 ML 500 ML IV ONE (16:58)
[2020-06-09 17:40] LABS: Basophils % (A) 0 %; Eosinophils # (A) 0.1 k/uL (0-0.7); Eosinophils % (A) 1 %; Lymphocytes # (A) 1.6 k/uL (1.0-4.8); Lymphocytes % (A) 14 %; MCH 27.3 pg (25.0-35.0); MCHC 32.5 g/dL (31.0-37.0); MCV 84.1 fL (80.0-100.0); Mean Platelet Volume 6.8; Monocytes # (A) 0.4 k/uL (0-1.0); Monocytes % (A) 4 %; Neutrophils # (A) 8.8 k/uL (1.3-7.7); Neutrophils % (A) 79 %; Platelet Count 322 k/uL (150-450); RDW 13.9 % (11.5-15.5); WBC 11.1 k/uL (3.8-10.6)
[2020-06-09 17:43] LABS: Appearance,Urine Clear (Clear); Bacteria,Urine Rare /hpf; Bilirubin,Urine Negative (Negative); Blood,Urine Small (Negative); Color,Urine Yellow; Glucose,Urine (UA) Negative (Negative); Ketones,Urine Negative (Negative); Leukocyte Esterase,Urine Negative (Negative); Mucus,Urine Rare /hpf; Nitrite,Urine Negative (Negative); PH, Urine 6.5 (5.0-8.0); Protein,Urine Negative (Negative); RBC,Urine 31 /hpf (0-5); Specific Gravity,Urine 1.013 (1.001-1.035); Squamous Epithelial Cell,Urine 1 /hpf (0-4); Urobilinogen,Urine <2.0 mg/dL (<2.0); WBC,Urine 1 /hpf (0-5)
--- NOTE | 2020-06-09 17:46 | ED ---
General Adult HPI - General Chief complaint: Back Pain/Injury Stated complaint: recheck - 37wks preg, kidney stones Time Seen by Provider: 06/09/20 16:37 Source: patient, RN notes reviewed, old records reviewed Mode of arrival: ambulatory Limitations: no limitations - History of Present Illness Initial comments: 24-year-old female patient presents to ED for evaluation of left flank pain. Patient was that she has history kidney stones. She reports that she was admitted to the hospital for day on 06/07 for the same complaint. She was given hydration and IV pain medication that time and felt much better. She reports that earlier today she began once again having left flank pain. Feels identical to kidney stones in the past. Denies anterior abdominal pain or vaginal bleeding. Denies any other complaints. Systemic: Pt denies fatigue, fever/chills, rash. Pt denies weakness, night sweats, weight loss. Neuro: Pt denies headache, visual disturbances, syncope or pre-syncope. HEENT: Pt denies ocular discharge or irritation, otalgia, rhinorrhea, pharyngitis or notable lymphadenopathy. Cardiopulmonary: Pt denies chest pain, SOB, heart palpitations, dyspnea on exertion. Abdominal/GI: Pt denies abdominal pain, n/v/d. : Pt denies dysuria, burning w/ urination, frequency/urgency. Denies new onset urinary or bowel incontinence. MSK: Pt denies myalgia, loss of strength or function in extremities. Neuro: Pt denies new onset weakness, paresthesias. - Related Data Home Medications Medication Instructions Recorded Confirmed Levothyroxine Sodium [Levoxyl] 50 mcg PO DAILY 04/16/20 04/23/20 Pnv No.95/Ferrous Fum/Folic AC 1 tab PO DAILY 04/16/20 04/23/20 [ Multivitamin Tablet] Allergies Allergy/AdvReac Type Severity Reaction Status Date / Time hydromorphone AdvReac Nausea Verified 06/09/20 16:15 Review of Systems ROS Statement: Those systems with pertinent positive or pertinent negative responses have been documented in the HPI. ROS Other: All systems not noted in ROS Statement are negative. Past Medical History Past Medical History: No Reported History Additional Past Medical History / Comment(s): kidney stones History of Any Multi-Drug Resistant Organisms: None Reported Past Surgical History: No Surgical Hx Reported Additional Past Surgical History / Comment(s): lithotripsy Past Anesthesia/Blood Transfusion Reactions: No Reported Reaction Past Psychological History: Depression Smoking Status: Never smoker Past Alcohol Use History: None Reported Past Drug Use History: None Reported - Past Family History Mother Family Medical History: No Reported History General Exam - General Exam Comments Initial Comments: Constitutional: NAD, AOX3, Pt has pleasant affect. HEENT: NC/AT, trachea midline, neck supple, no lymphadenopathy. External ears appear normal, without discharge. Mucous membranes moist. Eyes PERRLA, EOM intact. There is no scleral icterus. No pallor noted. Cardiopulmonary: RRR, no murmurs, rubs or gallops, no JVD noted. Lungs CTAB in anterior and posterior valentine. No peripheral edema. Abdominal exam: Abdomen soft and non-distended. Abdomen non-tender to palpation in all 4 quadrants. Bowel sounds active in LLQ. No hepatosplenomegaly. No ecchymosis. Flanks nontender. Neuro: CN II-XII grossly intact. No nuchal rigidity. No raccon eyes, no flowers sign, no hemotympanum. No cervical spinal tenderness. MSK: No posterior calf tenderness bilaterally, homans sign negative bilaterally. Posterior tibialis and radial pulse +2 bilaterally. Sensation intact in upper and lower extremities. Full active ROM in upper and lower extremities, 5/5 stregnth. Limitations: no limitations Course Vital Signs 06/09/20 16:11 Temperature 98.1 F Pulse Rate 114 H Respiratory 18 Rate Blood Pressure 114/67 O2 Sat by Pulse 98 Oximetry Medical Decision Making - Medical Decision Making 24-year-old female patient ED for evaluation of left flank pain. Feels identical to kidney stones in the past. Patient is 38 weeks gestation. Denies any anterior abdominal pain any vaginal discharge, fluid or bleeding. At time of evaluation patient's discomfort has resolved. Laboratory investigations non-impressive. 31 red blood cells in urine. Mother baby came down to do nonstress test which was reassuring. Patient is feeling baby move. Patient was discharged to follow up with primary care provider and return to ER if any worsening symptoms. Case discussed with Dr. Burk. - Lab Data Result diagrams: 06/09/20 17:13 06/09/20 17:13 Lab Results 06/09/20 06/09/20 06/09/20 Range/Units 17:13 17:13 17:13 WBC 11.1 H (3.8-10.6) k/uL RBC 4.40 (3.80-5.40) m/uL Hgb 12.0 (11.4-16.0) gm/dL Hct 37.0 (34.0-46.0) % MCV 84.1 (80.0-100.0) fL MCH 27.3 (25.0-35.0) pg MCHC 32.5 (31.0-37.0) g/dL RDW 13.9 (11.5-15.5) % Plt Count 322 (150-450) k/uL Neutrophils % 79 % Lymphocytes % 14 % Monocytes % 4 % Eosinophils % 1 % Basophils % 0 % Neutrophils # 8.8 H (1.3-7.7) k/uL Lymphocytes # 1.6 (1.0-4.8) k/uL Monocytes # 0.4 (0-1.0) k/uL Eosinophils # 0.1 (0-0.7) k/uL Basophils # 0.0 (0-0.2) k/uL Sodium 134 L (137-145) mmol/L Potassium 4.3 (3.5-5.1) mmol/L Chloride 105 (98-107) mmol/L Carbon Dioxide 21 L (22-30) mmol/L Anion Gap 8 mmol/L BUN 9 (7-17) mg/dL Creatinine 0.50 L (0.52-1.04) mg/dL Est GFR (CKD-EPI)AfAm >90 (>60 ml/min/1.73 sqM) Est GFR (CKD-EPI)NonAf >90 (>60 ml/min/1.73 sqM) Glucose 84 (74-99) mg/dL Calcium 9.4 (8.4-10.2) mg/dL Urine Color Yellow Urine Appearance Clear (Clear) Urine pH 6.5 (5.0-8.0) Ur Specific [place] 1.013 (1.001-1.035) Urine Protein Negative (Negative) Urine Glucose (UA) Negative (Negative) Urine Ketones Negative (Negative) Urine Blood Small H (Negative) Urine Nitrite Negative (Negative) Urine Bilirubin Negative (Negative) Urine Urobilinogen <2.0 (<2.0) mg/dL Ur Leukocyte Esterase Negative (Negative) Urine RBC 31 H (0-5) /hpf Urine WBC 1 (0-5) /hpf Ur Squamous Epith Cells 1 (0-4) /hpf Urine Bacteria Rare H (None) /hpf Urine Mucus Rare H (None) /hpf Disposition Clinical Impression: , Flank pain Disposition: HOME SELF-CARE Condition: Stable Instructions (If sedation given, give patient instructions): Flank Pain (ED) Additional Instructions: Follow up with PCP and instrument specialist tomorrow. Return to ED with any worsening symptoms. Is patient prescribed a controlled substance at d/c from ED?: No Referrals: Kev Herbert MD [Primary Care Provider] - 1-2 days
[2020-06-09 18:00] LABS: African American GFR (CKD) >90 (>60 ml/min/1.73 sqM); Anion Gap 8 mmol/L; Blood Urea Nitrogen 9 mg/dL (7-17); Calcium 9.4 mg/dL (8.4-10.2); Carbon Dioxide 21 mmol/L (22-30); Chloride 105 mmol/L (98-107); Glucose 84 mg/dL (74-99); Non-African American GFR(CKD) >90 (>60 ml/min/1.73 sqM); Potassium 4.3 mmol/L (3.5-5.1); Sodium 134 mmol/L (137-145)
[2020-06-09 18:46] VITALS: BP 108/71; PULSE 94
== END 2020-06-09 18:46 | disposition home or self-care (01) ==
LOC: EC 16:00
DX: O99.891 Other specified diseases and conditions complicating pregnancy (principal); R10.9 Unspecified abdominal pain; R82.998 Other abnormal findings in urine; Z79.899 Other long term (current) drug therapy; Z3A.38 38 weeks gestation of pregnancy; Z88.5 Allergy status to narcotic agent; Z87.442 Personal history of urinary calculi
CPT/HCPCS: 36415; 80048; 81001; 85025; 96360; 99284

== ENCOUNTER 2020-06-24 11:47 | Inpatient (IN) | payer BC ==
--- NOTE | 2020-06-26 06:10 | P.HPOB ---
History of Present Illness H&P Date: 06/26/20 Chief Complaint: Requested induction of labor This patient is a pleasant 24-year-old 1 para 0 female estimated date of confinement 06/24/2020 estimated gestational age 40-2/7 weeks who presents to labor and delivery for requested postdates induction of labor. Patient's care has been uncomplicated, with the exception of an admission for kidney stones. Patient is now past her due date as requested induction of labor. Review of Systems Genitourinary: Reports Menstruation: Reports amenorrhea Past Medical History Past Medical History: Thyroid Disorder Additional Past Medical History / Comment(s): kidney stones History of Any Multi-Drug Resistant Organisms: None Reported Additional Past Surgical History / Comment(s): lithotripsy Past Anesthesia/Blood Transfusion Reactions: No Reported Reaction Past Psychological History: Depression Additional Psychological History / Comment(s): History of suicide attempt 2016 Smoking Status: Never smoker Past Alcohol Use History: None Reported Past Drug Use History: None Reported - Past Family History Mother Family Medical History: No Reported History Medications and Allergies Home Medications Medication Instructions Recorded Confirmed Type Levothyroxine Sodium [Levoxyl] 50 mcg PO DAILY 04/16/20 04/23/20 History Pnv No.95/Ferrous Fum/Folic AC 1 tab PO DAILY 04/16/20 04/23/20 History [ Multivitamin Tablet] Allergies Allergy/AdvReac Type Severity Reaction Status Date / Time hydromorphone AdvReac Nausea Verified 06/09/20 16:15 Exam - OBG Physical Exam Abdomen: bowel sounds normal, no diffuse tenderness, no bruit present, no guarding noted, no hepatomegaly, no splenomegaly, no mass Vulva: both: normal Vagina: normal moisture, no discharge Cervix: no lesion (Cervix in the office showed her cervix to be 1-2 cm dilated), no discharge Uterus: enlarged (Fundal height 40 cm) Results blood work shows she is O-, rubella immune, RPR nonreactive, hepatitis B negative, HIV is nonreactive, group B strep was negative, Glucola was abnormal with a normal three-hour gtt., ultrasound done at 35 week showed baby B at 36 percentile did patient did receive RhoGAM on March 26. Assessment and Plan Assessment: This is a pleasant 24-year-old 1 para 0 female 40-2/7 weeks gestation who is admitted to labor and delivery for requested induction of labor. Plan is induction of labor and anticipate vaginal delivery. (1) Postmaturity , 40-42 weeks gestation Current Visit: Yes Status: Acute Code(s): O48.0 - POST-TERM SNOMED Code(s): 95593705930744 (2) Encounter for planned induction of labor Current Visit: Yes Status: Acute Code(s): Z34.90 - ENCNTR FOR SUPRVSN OF NORMAL , UNSP, UNSP TRIMESTER SNOMED Code(s): 815387111
[2020-06-26] MEDS ORDERED: LIDOCAINE 0.5% (PF) 5 MG/ML (50 ML SDV) SQ PRN (06:14)
[2020-06-26] MEDS ORDERED: METHYLERGONOVINE 0.2 MG/ML 1 ML AMP IM PRN (06:14)
[2020-06-26] MEDS ORDERED: TERBUTALINE 1 MG/ML VIAL SQ PRN (06:14)
[2020-06-26] MEDS ORDERED: OXYTOCIN 30 UNITS/500 ML NS 30 UNIT in SALINE 1 500ML.BAG IV SCH (06:14)
[2020-06-26] MEDS ORDERED: CARBOPROST TROMETHAMINE 250 MCG/ML 1 ML AMP IM PRN (06:14)
[2020-06-26] MEDS ORDERED: OXYTOCIN 10 UNIT/ML 1 ML VIAL IM PRN (06:14)
[2020-06-26] MEDS: LACTATED RINGERS 1,000 ML IV SCH ×2 (06:30→13:26)
[2020-06-26 07:03] LABS: Basophils % (A) 0 %; Eosinophils # (A) 0.1 k/uL (0-0.7); Eosinophils % (A) 1 %; HCT 35.4 % (34.0-46.0); HGB 11.9 gm/dL (11.4-16.0); Lymphocytes # (A) 2.1 k/uL (1.0-4.8); Lymphocytes % (A) 23 %; MCH 27.8 pg (25.0-35.0); MCHC 33.5 g/dL (31.0-37.0); MCV 82.9 fL (80.0-100.0); Mean Platelet Volume 6.8; Monocytes # (A) 0.3 k/uL (0-1.0); Monocytes % (A) 4 %; Neutrophils # (A) 6.2 k/uL (1.3-7.7); Neutrophils % (A) 69 %; Platelet Count 344 k/uL (150-450); RBC 4.27 m/uL (3.80-5.40)
[2020-06-26] MEDS: BUTORPHANOL 1 MG/ML 1 ML VIAL IV PRN ×3 (10:38→14:30)
[2020-06-26] MEDS ORDERED: CITRIC ACID-SODIUM CITRATE 15 ML CUP PO ONE (14:09)
[2020-06-26] MEDS ORDERED: LACTATED RINGERS 1,000 ML IV ONE (14:09)
[2020-06-26] MEDS ORDERED: KETOROLAC 15 MG/ML 1 ML VIAL ONE (16:30)
[2020-06-26] MEDS ORDERED: MORPHINE SULFATE (PF) 0.3 MG/0.3 ML SYR ONE (16:30)
[2020-06-26] MEDS ORDERED: ONDANSETRON 4 MG/2 ML VIAL ONE (16:30)
[2020-06-26] MEDS ORDERED: KETOROLAC 30 MG/ML 1 ML VIAL ONE (16:30)
[2020-06-26] MEDS ORDERED: OXYTOCIN 10 UNIT/ML 1 ML VIAL ONE (16:30)
[2020-06-26] MEDS ORDERED: PHENYLEPHRINE-0.9% NACL SYG 1 MG/10 ML SYRINGE ONE (16:30)
[2020-06-26] MEDS ORDERED: ONDANSETRON 4 MG/2 ML VIAL IVP PRN (17:21)
[2020-06-26] MEDS ORDERED: diphenhydrAMINE 50 MG/ML 1 ML VIAL IVP PRN (17:21)
[2020-06-26] MEDS ORDERED: NALOXONE 0.4 MG/ML 1 ML VIAL IV PRN (17:21)
[2020-06-26] MEDS ORDERED: HYDROmorphone 0.5 MG/0.5 ML SYRINGE IVP PRN (17:21)
[2020-06-26] MEDS ORDERED: KETOROLAC 15 MG/ML 1 ML VIAL IVP PRN (17:21)
[2020-06-26] MEDS ORDERED: Rhogam IMMUNE GLOBULIN 1,500 UNIT/1 ML IM ONE (17:22)
[2020-06-26] MEDS ORDERED: ACETAMINOPHEN TAB 325 MG TAB PO PRN (17:22)
[2020-06-26] MEDS ORDERED: ZOLPIDEM 5 MG TAB PO PRN (17:22)
[2020-06-26] MEDS ORDERED: SIMETHICONE 80 MG CHEWABLE PO PRN (17:22)
[2020-06-26] MEDS ORDERED: METOCLOPRAMIDE 5 MG/ML 2 ML VIAL IVP PRN (17:22)
[2020-06-26] MEDS ORDERED: diphenhydrAMINE 25 MG CAP PO PRN (17:22)
[2020-06-26] MEDS ORDERED: OXYTOCIN 20 UNITS/1000 ML NS 1,000 ML IV SCH (17:30)
--- NOTE | 2020-06-26 17:33 | P.OP ---
Date of Procedure: 06/26/20 Preoperative Diagnosis: #1: 40-2/7 week intrauterine #2: Failure to progress/cephalopelvic dystocia Postoperative Diagnosis: Same Procedure(s) Performed: Primary low transverse section Anesthesia: spinal Surgeon: Daniele Mccarthy Rail Flaw Detector Operator #1: Dejah Castillo Estimated Blood Loss (ml): 800 Pathology: none sent Condition: stable Disposition: observation Indications for Procedure: Please see dictated H&P for details of this patient's admission. Brief summary this pleasant 24-year-old 1 para 0 female 40-2/7 weeks gestation admitted to labor and delivery this morning for postdates induction of labor. On admission patient is 2 cm dilated has artificial rupture membranes for clear fluid. Labor is induced with Pitocin per protocol. Patient did not progress beyond 3 cm dilated and did form some. She already was noted to have a borderline pelvis and it was evident the head was not fitting pelvis. At this time I recommend she proceed with section for delivery. Patient understands this surgery and risks including risks of infection, bleeding, possible bowel, bladder, vessels, and/or other organs. All the patient's questions were answered written consent is obtained. Operative Findings: A vigorous viable male Apgars 8 and 9 delivery time is 1652 hrs. Description of Procedure: This patient has a Kennedy catheter placed to straight drain. She subsequently taken to the operating room and spinal anesthetic is administered without incident. With an adequate level of anesthesia she has abdominal prep and drape. Scalpels and taken Pfannenstiel skin incision is then made. A second scalpel is taken down the fascia the fascia scored with a knife. Fascial incision extended bilaterally using the Reza scissors. Fascia is then dissected sharply off the rectus muscles. Rectus muscles are the peritoneum identified and entered sharply. Peritoneal incision extended superior and inferior without difficulty. Bladder blade is then placed. Bladder peritoneum was taken off the lower uterine segment. Scalpels and taken low transverse uterine incision is made. Using a hemostat I into the uterine cavity bluntly and there is loss of clear fluid. This incision is extended bluntly. Infant's head is then guided gently through the incision. Infant's head is asynclitic and there is an area of The easily delivered with fundal pressure. Mouth and nares are bulb suctioned. We then have deliver the rest this infant's body. This is a vigorous viable male infant Apgars are 8 and 9 delivery time is 1652 hrs. After delivery of the the umbilical cord is doubly clamped and cut does appear to be trivascular. Placenta is then manually extracted intact. Uterus is then externalized. Uterine incision is inspected and demarcated with Novoa clamps. Uterine incision is then closed using 0 Vicryl running locked fashion 2 layers additional sutures are placed on the 1 area for hemostasis. Excellent hemostasis is noted. This done the excess fluid is removed from the abdomen and pelvis. Uterus tubes and ovaries appear normal for term gestation. Parietal peritoneum was then identified and closed using 0 Vicryl running fashion. Rectus muscles reapproximated Vicryl interrupted fashion. Fascial incision is then closed using 0 PDS. Fascial incision is intact and hemostatic. Subcutaneous tissues and closed using a 3-0 Vicryl. Skin is and closed using kassie. All counts are correct 3. No complications. Infant and mother are stable delivery room.
[2020-06-27] MEDS: LACTATED RINGERS 1,000 ML IV SCH ×2 (00:09→20:44)
[2020-06-27] MEDS: SENNOSIDES-DOCUSATE SODIUM 1 EACH TAB PO SCH ×3 (01:23→22:27)
--- NOTE | 2020-06-27 06:10 | P.PNOBGPC ---
Subjective - Subjective Patient reports: Reports appetite normal, Reports voiding normally, Reports pain well controlled, Reports ambulating normally : doing well Objective - Vital Signs Latest vital signs: Vital Signs Temp Pulse Resp BP Pulse Ox 06/27/20 04:00 98.3 F 105 H 16 95/55 97 06/27/20 02:00 97 06/27/20 00:00 98.7 F 105 H 16 115/74 96 06/26/20 22:22 98 06/26/20 22:00 16 06/26/20 20:22 16 06/26/20 19:22 98.8 F 113 H 17 117/78 06/26/20 18:52 93 17 120/59 95 06/26/20 18:22 97.4 F L 89 17 114/55 98 06/26/20 18:07 108 H 17 106/70 98 06/26/20 17:52 109 H 17 101/66 06/26/20 17:37 107 H 17 92/53 98 06/26/20 17:22 96.2 F L 100 17 99/53 98 06/26/20 09:36 97.9 F 109 H 16 141/85 99 Intake and Output 06/26/20 06/26/20 06/27/20 14:59 22:59 06:59 Intake Total 1000 100 Output Total 200 700 Balance 1000 -100 -700 Intake: IV 1000 Oral 100 Output: Urine 200 700 Uretheral (Kennedy) 300 Other: Voiding Method Indwelling Catheter # Voids 5 1 Weight 93.894 kg - Exam Lungs: bilateral: normal Chest: Normal S1, Normal S2 Extremities: Present: normal Abdomen: Present: normal appearance, soft. Absent: distention, tenderness Incision: Present: normal, dry, intact Uterus: Present: normal, firm Assessment and Plan Assessment: Post operative day #1. Patient is resting without new complaints. Vital signs are stable she is afebrile. Uterus is firm nontender and her incision is intact and dry. Patient is having normal lochia. CBC is pending at the time of this dictation. Patient requested to restart her Wellbutrin. Plan today is to advance her diet, encourage ambulation, allow the patient to shower, and check a CBC. We will continue routine postoperative care. (1) Postmaturity , 40-42 weeks gestation Current Visit: Yes Status: Acute Code(s): O48.0 - POST-TERM SNOMED Code(s): 63283958789978 (2) Encounter for planned induction of labor Current Visit: Yes Status: Acute Code(s): Z34.90 - ENCNTR FOR SUPRVSN OF NORMAL , UNSP, UNSP TRIMESTER SNOMED Code(s): 148386822
--- NOTE | 2020-06-27 07:31 | P.PN ---
Progress Note - Text Progress Note Date: 06/27/20 Postoperative day 1 status post section under spinal anesthesia, and intrathecal morphine given for postoperative analgesia, patient doing well, there is no anesthesia related complications, Patient had no headache, vital signs stable , Assessment and plan= postop day 1 status post , doing well there is no anesthesia related complication.
[2020-06-27] MEDS: buPROPion XL 150 MG TAB.ER.24H PO SCH (07:56)
[2020-06-27] MEDS: IRON AG/C/B12/CA/SUC.ACID/STOM 1 EACH TAB PO SCH (07:56)
[2020-06-27] MEDS: IBUPROFEN 600 MG TAB PO PRN ×3 (08:09→22:27)
[2020-06-27 08:56] LABS: Basophils % (A) 0 %; Eosinophils # (A) 0.1 k/uL (0-0.7); Eosinophils % (A) 1 %; HCT 29.6 % (34.0-46.0); HGB 10.3 gm/dL (11.4-16.0); Lymphocytes # (A) 1.3 k/uL (1.0-4.8); Lymphocytes % (A) 12 %; MCH 28.7 pg (25.0-35.0); MCHC 34.8 g/dL (31.0-37.0); MCV 82.5 fL (80.0-100.0); Monocytes # (A) 0.4 k/uL (0-1.0); Monocytes % (A) 4 %; Neutrophils # (A) 9.3 k/uL (1.3-7.7); Neutrophils % (A) 83 %; Platelet Count 271 k/uL (150-450); RBC 3.58 m/uL (3.80-5.40); RDW 14.2 % (11.5-15.5); WBC 11.3 k/uL (3.8-10.6)
[2020-06-27] MEDS: HYDROcodone/APAP 5-325MG 1 EACH TAB PO PRN ×2 (11:59→17:30)
[2020-06-28] MEDS: HYDROcodone/APAP 5-325MG 1 EACH TAB PO PRN ×2 (03:51→09:17)
[2020-06-28] MEDS: IBUPROFEN 600 MG TAB PO PRN ×2 (06:22→12:53)
[2020-06-28 08:20] VITALS: BP 113/66; PULSE 99; RESP 16; TEMP 97.4
[2020-06-28] MEDS: buPROPion XL 150 MG TAB.ER.24H PO SCH (09:16)
[2020-06-28] MEDS: IRON AG/C/B12/CA/SUC.ACID/STOM 1 EACH TAB PO SCH (09:16)
[2020-06-28] MEDS: SENNOSIDES-DOCUSATE SODIUM 1 EACH TAB PO SCH (09:17)
--- NOTE | 2020-06-28 09:31 | P.DS ---
Providers Date of admission: 06/26/20 05:59 Expected date of discharge: 06/28/20 Attending physician: Daniele Mccarthy Primary care physician: Kev Herbert - Discharge Diagnosis(es) (1) Status post primary low transverse section Current Visit: Yes Status: Acute Hospital Course: Patient presented for induction of labor. She underwent a primary low transverse . Postoperatively her course uncomplicated. She is tolerating regular diet, passing flatus, pain is well-controlled with oral medications. She is ambulating and voiding without difficulty. Dr. Mccarthy did start her on Wellbutrin while she was here for her history of depression. She'll be discharged home postoperative day #2 in stable condition to follow-up with Dr. Mccarthy in one week. Plan - Discharge Summary New Discharge Prescriptions: New Ibuprofen [Motrin] 600 mg PO Q6HR PRN #40 tab PRN Reason: Mild Pain Or Fever >= 100.5 Iron Ag/C/B12/Ca/Suc.acid/Stom [Multigen] 1 each PO DAILY #30 tab HYDROcodone/APAP 5-325MG [[place]wick 5-325] 1 each PO Q4HR PRN #18 tab PRN Reason: Moderate Pain buPROPion XL [Wellbutrin XL] 150 mg PO DAILY #30 tab.er.24h No Action Levothyroxine Sodium [Levoxyl] 50 mcg PO DAILY Pnv No.95/Ferrous Fum/Folic AC [ Multivitamin Tablet] 1 tab PO DAILY Discharge Medication List Levothyroxine Sodium [Levoxyl] 50 mcg PO DAILY 04/16/20 [History] Pnv No.95/Ferrous Fum/Folic AC [ Multivitamin Tablet] 1 tab PO DAILY 04/16/20 [History] HYDROcodone/APAP 5-325MG [[place]wick 5-325] 1 each PO Q4HR PRN #18 tab 06/27/20 [Rx] Ibuprofen [Motrin] 600 mg PO Q6HR PRN #40 tab 06/27/20 [Rx] Iron Ag/C/B12/Ca/Suc.acid/Stom [Multigen] 1 each PO DAILY #30 tab 06/27/20 [Rx] buPROPion XL [Wellbutrin XL] 150 mg PO DAILY #30 tab.er.24h 06/27/20 [Rx] Follow up Appointment(s)/Referral(s): Daniele Mccarthy MD [STAFF PHYSICIAN] - 1 Week (Please see me also in 6 weeks for check) Patient Instructions/Handouts: (DC) Activity/Diet/Wound Care/Special Instructions: No heavy lifting or strenuous activity for 6 weeks. No intercourse or anything per vagina for 6 weeks. Please call if any fever, chills, excessive vaginal bleeding, and/or abdominal pain. Discharge Disposition: HOME SELF-CARE
== END 2020-06-28 14:00 | disposition home or self-care (01) | DRG 788 ==
LOC: 4FBP 06-26 05:59
PROVIDERS: ADMIT Obstetrics & Gynecology; ATTEND Obstetrics & Gynecology
PROC: 10D00Z1 Extraction of Products of Conception, Low, Open Approach (ICD-10-PCS; principal; 2020-06-26 06:15)
DX: O99.344 Other mental disorders complicating childbirth (principal); Z37.0 Single live birth; Z3A.40 40 weeks gestation of pregnancy; O62.2 Other uterine inertia; F32.9 Major depressive disorder, single episode, unspecified; O48.0 Post-term pregnancy; O66.9 Obstructed labor, unspecified; Z87.442 Personal history of urinary calculi; Z91.5 Personal history of self-harm; Z79.890 Hormone replacement therapy; Z88.5 Allergy status to narcotic agent
CPT/HCPCS: 85025; 86850; 86900; 86901